=== PATIENT | female | born 1985 | race Caucasian/White ===

== ENCOUNTER → 2018-02-27 01:24 | Outpatient (CLI) | payer MEDICAID, SELFPAY ==
--- NOTE | 2018-02-27 15:12 | DI.REPORT_ITS ---
SYMPTOM/DIAGNOSIS: , Z34.90 OB ULTRASOUND 02/27/18 OB ultrasound was performed utilizing 2nd trimester protocol. biometry is consistent with gestational age of 20 weeks 4 days and an EDC of 07/13/18. The placenta is anterior with no evidence of placenta previa. There is normal quantity of amniotic fluid. Anomaly screen is within normal limits as per the attached check list. Many abnormalities cannot be diagnosed. A normal exam does not exclude a congenital anomaly. Radiology No. [id number] LMP: Exam Date: 02/27/18 [facility] wks days on EDC ([facility]) 07/13/18 Confirmed: HISTORY: SURVEY ---- PREDICTED GESTATIONAL AGE NUMBER 20 +4 weeks with a range of 19 +4 week to 21 +4 weeks. 1 Determined by_XX__1STUS___LMP___HISTORY Info. pertaining to fetus # PLACENTA PRESENTATION Grade 0-1 Cephalic_XX__ Anterior_XX__Posterior___ Breech____ Right Left Transverse(head right___ Fundal___Low-lying___Previa___ Transverse(head left___ Varying BIOMETRY AMNIOTIC FLUID BPD: 48 mm 20 +4 weeks Normal HC: 182 mm 20 +4 weeks AC: 154 mm 20 +4 weeks FL: 34 mm 20 +5 weeks AMNIOTIC FLUID INDEX >26 WK CRL: mm weeks Cisterna Magna: 2.7 mm CI: 79 RUQ: LUQ Cerebellum: 2.04 cm EFW: 365 grams 47% Percentile RLQ: LLQ Total: cms Composite AGE= 20 +4 wks EDC by US___07/13/18 BIOPHYSICAL PROFILE ANATOMY IDENTIFIED SCORE 0/2 Heart: 4-Chamber__XX_Rate:BPM__143 bpm__ LVOT:___X RVOT:__X Amniotic Fluid(>2cms)____ Stomach:_X Kidneys:__X Respirations (>30 secs) Bladder:___X Post. Fossa:___X Body Flex/Extension 3 vessel cord:_X Ventricles:__X cord insertion:_X____ Lips:__X__ Extremity Flex/Extension spinal morphology:_X Nose:X Total Score= Palate:_X NS=not seen
== END ==
PROVIDERS: PCP Family Medicine; Visit Provider Advanced Practice Midwife
DX: Z34.92 Encounter for supervision of normal pregnancy, unspecified, second trimester (principal)
CPT/HCPCS: 76805

== ENCOUNTER → 2018-03-02 15:17 | Outpatient (CLI) | payer MEDICAID, SELFPAY ==
[2018-03-02 17:19] LABS: ALT 12 U/L (12-78); AST 10 U/L (15-37); Albumin 3.4 g/dL (3.4-5.0); Alkaline Phosphatase 75 U/L (46-116); Bilirubin, Direct 0.13 mg/dL (0.00-0.20); Bilirubin, Total 0.4 mg/dL (0.2-1.0)
[2018-03-02 18:01] LABS: *AMPHETAMINES SCREEN URINE Negative (Negative); *BARBITURATES SCREEN URINE Negative (Negative); *BENZODIAZEPINES SCREEN URINE Negative (Negative); Cannabinoids THC Negative (Negative); Cocaine Screen,Urine Negative (Negative); METHADONE URINE SCREEN Negative (Negative); OPIATES URINE SCREEN Negative (Negative)
[2018-03-02 18:27] LABS: Tricyclic Antidepressants Negative (Negative)
[2018-03-09 15:36] LABS: Result Summary NEGATIVE; Specimen WB Whole Blood
== END ==
PROVIDERS: Advanced Practice Midwife; PCP Family Medicine; Visit Provider Advanced Practice Midwife
DX: B18.2 Chronic viral hepatitis C (principal); Z34.82 Encounter for supervision of other normal pregnancy, second trimester; Z13.228 Encounter for screening for other metabolic disorders
CPT/HCPCS: 36415; 80076; 80307; 81220

== ENCOUNTER 2018-04-03 13:28 | Emergency (ER) | payer MEDICAID, SELFPAY ==
[2018-04-03 13:30] VITALS: BP 127/77; PULSE 89; RESP 20; TEMP 36.4; O2SAT 99
--- NOTE | 2018-04-03 14:01 | W.ED.GENAD ---
Discharge Plan Disposition Patient Disposition: HOME Discharge Details Chief Complaint: RespSymp Clinical Impression: Bronchitis Primary Care Provider: Tavo Jean ED Provider: Yovany Atkins Home Meds and New Rx's Prescriptions: New albuterol sulfate 90 mcg/actuation HFA aerosol inhaler 2 puff IH Q4H PRN (Reason: wheezing) Qty: 8 RF: 0 Continue buprenorphine-naloxone [Suboxone] 12-3 mg film 1 film SL DAILY RF: 0 sertraline [Zoloft] 25 mg tablet 25 mg PO DAILY RF: 0 trazodone 50 mg tablet 100 mg PO HS RF: 0 [id number] [Prenate AM] 1 EACH tablet 1 ea PO DAILY 30 Days Qty: 30 RF: 6 PNV,calcium 46-tvgd-vwrrw acid [ Plus (calcium carb)] 1 EACH tablet 1 tab-cap PO DAILY 30 Days Qty: 30 RF: 11 aspirin [Aspir-Low] 81 MG tablet,delayed release (DR/EC) 81 mg PO DAILY Qty: 90 RF: 2 docusate sodium [Colace] 100 MG capsule 100 mg PO DAILY Qty: 1 RF: 0 omeprazole 20 MG capsule,delayed release(DR/EC) 20 mg PO DAILY Qty: 1 RF: 0 Discharge Instructions Instructions: Acute Bronchitis (ED) Additional Instructions: Use albuterol inhaler with spacer: 2 puffs every 4 hours as needed for wheezing and shortness. Please contact your primary care physician to arrange follow-up. Return to the ER for any worsening or new concerning symptoms. Referrals: Tavo Jean [Primary Care Provider] - Medical Decision Making [facility] Narrative Medical decision making narrative: 14:15 --32-year-old 201 at 25 weeks with history of reactive airway disease with wheeze that responded to albuterol in the past, here with 3 days of nonproductive cough and wheezing. Patient is afebrile. Hemodynamically stable. Saturating well. She does have bilateral wheeze on exam. We will treat with albuterol neb and reassess. 15:28 --patient was reassessed after 2 albuterol neb treatments and wheeze resolved. She does have now have some bilateral rhonchi. Suspect viral bronchitis. Patient was provided albuterol inhaler and spacer and she was instructed on use. She was encouraged to use this to treat for asthma. Patient was advised to follow-up with her primary care physician as scheduled later this week and I encouraged her to return immediately should she have any worsening or new concerning symptoms. HPI - General Adult General Date/Time Provider Initiated Documentation: 04/03/18 13:41. Limitations to Documentation: no limitations. Information obtained by: patient. HPI Narrative: 32-year-old female smoker, at 25 weeks, here with chief complaint of wheeze. Patient states that her wheeze started about 3 days ago and has persisted. Wheeze is constant. No modifiers. Patient has an associated dry nonproductive cough. She also has some sinus congestion. No fevers. Patient recently stayed in her father's camp and notes she may have been exposed to some environmental allergens. Patient denies official diagnosis of asthma but has had similar wheeze in the past when she has had bronchitis that has responded to albuterol inhaler. She currently does not have an inhaler. Related Data Home Medications Medication Instructions Recorded Confirmed docusate sodium [Colace] 100 mg PO DAILY #1 03/02/18 04/03/18 omeprazole 20 mg PO DAILY #1 03/02/18 04/03/18 buprenorphine 12 mg-naloxone 3 mg 1 film SL DAILY film 04/03/18 04/03/18 sublingual film sertraline 25 mg tablet 25 mg PO DAILY 04/03/18 04/03/18 trazodone 50 mg tablet 100 mg PO HS tab 04/03/18 04/03/18 Previous Rx's Medication Instructions Recorded [id number] 1 ea PO DAILY 30 Days #30 tab 12/08/17 [Prenate AM] PNV,calcium 02-zmyf-mromc acid 1 tab-cap PO DAILY 30 Days #30 12/27/17 [ Plus (calcium carb)] tab-cap aspirin [Aspir-Low] 81 mg PO DAILY #90 tab-cap 01/08/18 albuterol sulfate 2 puff IH Q4H PRN #8 gm 04/03/18 Allergies Allergy/AdvReac Type Severity Reaction Status Date / Time ibuprofen [From Advil] AdvReac Mild Hives Unverified 04/03/18 13:37 General Stated Complaint: RespSymp HERIBERTO: 3 Review of Systems Review of Systems All systems reviewed & are unremarkable except as noted in HPI and below Constitutional Denies fever(s) ENT Reports nasal congestion Cardiovascular Denies chest pain and Reports dyspnea Respiratory Reports dyspnea and Reports wheezing Allergic/Immunologic Reports wheezing PFSH Family History Other Heart disease Hyperlipidemia Mental disorder Personal history of malignant neoplasm Medical History Depression Opiate addiction Social History adopted: No foster care: No pets and animals: Yes (1 cat, 1 dog) pets and animals: cat(s) and dog(s) Smoking/Tobacco Use Status: Current every day details: alcohol intake none substance use type: does not use Surgical History Bone spur L wrist wisdom teeth extractions Exam Const General: cooperative, no acute distress, well developed, acute distress and not in distress Orientation: alert and awake Limitations: mental status not altered HENMT Head: normal to inspection and normocephalic Face and sinus: other (congestion) Mouth: moist mucous membranes Throat: posterior oropharynx normal, uvula midline and no uvular edema Eyes General: appearance normal, both eyes and all related structures Conjunctivae: conjunctivae normal EOM: EOM intact bilaterally Neck Neck: trachea midline, supple and no lymphadenopathy noted Resp Effort & Inspection: normal respiratory effort, cough, not labored and no respiratory distress Auscultation: no rales, no rhonchi and wheezes Cardio Jugular venous pressure: no JVD Rate: regular rate Rhythm: regular rhythm Heart Sounds: S1 normal, S2 normal, no gallops, no murmurs and no rubs GI Palpation: soft and nontender Skin General skin exam: no rashes or lesions noted and dry skin Other: warm Neuro General: alert, awake and oriented x3 Psych Appearance: grossly normal Affect: normal affect Course Vital Signs Temperature 36.4 C L 04/03/18 13:30 Pulse 89 04/03/18 13:30 Respiratory Rate 20 04/03/18 13:30 Blood Pressure 127/77 04/03/18 13:30 Pulse Oximetry 99 04/03/18 13:30 Temperature 36.4 C L 04/03/18 13:30 Pulse 89 04/03/18 13:30 Respiratory Rate 20 04/03/18 13:30 Blood Pressure 127/77 04/03/18 13:30 Pulse Oximetry 99 04/03/18 13:30
[2018-04-03 14:10] VITALS: RESP 4
[2018-04-03] MEDS: Albuterol 2.5 MG/3 ML INH SOLN VIAL UPD ×2 (14:10→14:27)
[2018-04-03] MEDS: Albuterol HFA 8 GM 60 PUFF INH IH (14:11)
--- NOTE | 2018-04-03 14:16 | ED.GENADUL_ITS ---
Discharge Plan Disposition Patient Disposition: HOME Discharge Details Chief Complaint: RespSymp Clinical Impression: Bronchitis Primary Care Provider: Tavo Jean ED Provider: Yovany Atkins Home Meds and New Rx's Prescriptions: New albuterol sulfate 90 mcg/actuation HFA aerosol inhaler 2 puff IH Q4H PRN (Reason: wheezing) Qty: 8 RF: 0 Continue buprenorphine-naloxone [Suboxone] 12-3 mg film 1 film SL DAILY RF: 0 sertraline [Zoloft] 25 mg tablet 25 mg PO DAILY RF: 0 trazodone 50 mg tablet 100 mg PO HS RF: 0 [id number] [Prenate AM] 1 EACH tablet 1 ea PO DAILY 30 Days Qty: 30 RF: 6 PNV,calcium 71-ejvd-wovhk acid [ Plus (calcium carb)] 1 EACH tablet 1 tab-cap PO DAILY 30 Days Qty: 30 RF: 11 aspirin [Aspir-Low] 81 MG tablet,delayed release (DR/EC) 81 mg PO DAILY Qty: 90 RF: 2 docusate sodium [Colace] 100 MG capsule 100 mg PO DAILY Qty: 1 RF: 0 omeprazole 20 MG capsule,delayed release(DR/EC) 20 mg PO DAILY Qty: 1 RF: 0 Discharge Instructions Instructions: Acute Bronchitis (ED) Additional Instructions: Use albuterol inhaler with spacer: 2 puffs every 4 hours as needed for wheezing and shortness. Please contact your primary care physician to arrange follow-up. Return to the ER for any worsening or new concerning symptoms. Referrals: Tavo Jean [Primary Care Provider] - Medical Decision Making [facility] Narrative Medical decision making narrative: 14:15 --32-year-old 201 at 25 weeks with history of reactive airway disease with wheeze that responded to albuterol in the past, here with 3 days of nonproductive cough and wheezing. Patient is afebrile. Hemodynamically stable. Saturating well. She does have bilateral wheeze on exam. We will treat with albuterol neb and reassess. 15:28 --patient was reassessed after 2 albuterol neb treatments and wheeze resolved. She does have now have some bilateral rhonchi. Suspect viral bronchitis. Patient was provided albuterol inhaler and spacer and she was instructed on use. She was encouraged to use this to treat for asthma. Patient was advised to follow-up with her primary care physician as scheduled later this week and I encouraged her to return immediately should she have any worsening or new concerning symptoms. HPI - General Adult General Date/Time Provider Initiated Documentation: 04/03/18 13:41 . Limitations to Documentation: no limitations . Information obtained by: patient . HPI Narrative: 32-year-old female smoker, at 25 weeks, here with chief complaint of wheeze. Patient states that her wheeze started about 3 days ago and has persisted. Wheeze is constant. No modifiers. Patient has an associated dry nonproductive cough. She also has some sinus congestion. No fevers. Patient recently stayed in her father's camp and notes she may have been exposed to some environmental allergens. Patient denies official diagnosis of asthma but has had similar wheeze in the past when she has had bronchitis that has responded to albuterol inhaler. She currently does not have an inhaler. Related Data Home Medications Medication Instructions Recorded Confirmed docusate sodium [Colace] 100 mg PO DAILY #1 03/02/18 04/03/18 omeprazole 20 mg PO DAILY #1 03/02/18 04/03/18 buprenorphine 12 mg-naloxone 3 mg 1 film SL DAILY film 04/03/18 04/03/18 sublingual film sertraline 25 mg tablet 25 mg PO DAILY 04/03/18 04/03/18 trazodone 50 mg tablet 100 mg PO HS tab 04/03/18 04/03/18 Previous Rx's Medication Instructions Recorded [id number] 1 ea PO DAILY 30 Days #30 tab 12/08/17 [Prenate AM] PNV,calcium 58-mvck-lundm acid 1 tab-cap PO DAILY 30 Days #30 12/27/17 [ Plus (calcium carb)] tab-cap aspirin [Aspir-Low] 81 mg PO DAILY #90 tab-cap 01/08/18 albuterol sulfate 2 puff IH Q4H PRN #8 gm 04/03/18 Allergies Allergy/AdvReac Type Severity Reaction Status Date / Time ibuprofen [From Advil] AdvReac Mild Hives Unverified 04/03/18 13:37 General Stated Complaint: RespSymp HERIBERTO: 3 Review of Systems Review of Systems All systems reviewed & are unremarkable except as noted in HPI and below Constitutional Denies fever(s) ENT Reports nasal congestion Cardiovascular Denies chest pain and Reports dyspnea Respiratory Reports dyspnea and Reports wheezing Allergic/Immunologic Reports wheezing PFSH Family History Other Heart disease Hyperlipidemia Mental disorder Personal history of malignant neoplasm Medical History Depression Opiate addiction Social History adopted: No foster care: No pets and animals: Yes (1 cat, 1 dog) pets and animals: cat(s) and dog(s) Smoking/Tobacco Use Status: Current every day details: alcohol intake none substance use type: does not use Surgical History Bone spur L wrist wisdom teeth extractions Exam Const General: cooperative, no acute distress, well developed, acute distress and not in distress Orientation: alert and awake Limitations: mental status not altered HENMT Head: normal to inspection and normocephalic Face and sinus: other (congestion) Mouth: moist mucous membranes Throat: posterior oropharynx normal, uvula midline and no uvular edema Eyes General: appearance normal, both eyes and all related structures Conjunctivae: conjunctivae normal EOM: EOM intact bilaterally Neck Neck: trachea midline, supple and no lymphadenopathy noted Resp Effort & Inspection: normal respiratory effort, cough, not labored and no respiratory distress Auscultation: no rales, no rhonchi and wheezes Cardio Jugular venous pressure: no JVD Rate: regular rate Rhythm: regular rhythm Heart Sounds: S1 normal, S2 normal, no gallops, no murmurs and no rubs GI Palpation: soft and nontender Skin General skin exam: no rashes or lesions noted and dry skin Other: warm Neuro General: alert, awake and oriented x3 Psych Appearance: grossly normal Affect: normal affect Course Vital Signs Temperature 36.4 C L 04/03/18 13:30 Pulse 89 04/03/18 13:30 Respiratory Rate 20 04/03/18 13:30 Blood Pressure 127/77 04/03/18 13:30 Pulse Oximetry 99 04/03/18 13:30 Temperature 36.4 C L 04/03/18 13:30 Pulse 89 04/03/18 13:30 Respiratory Rate 20 04/03/18 13:30 Blood Pressure 127/77 04/03/18 13:30 Pulse Oximetry 99 04/03/18 13:30
[2018-04-03 14:27] VITALS: RESP 4
[2018-04-03] MEDS: Inhaler, Assist Device 1 EACH MC (14:28)
[2018-04-03 14:40] VITALS: RESP 4
[2018-04-03 14:57] VITALS: RESP 1
[2018-04-03 15:45] VITALS: BP 141/65; PULSE 89; RESP 20; TEMP 36.4; O2SAT 99
== END 2018-04-03 15:47 | disposition home or self-care (01) ==
PROVIDERS: Emergency Provider Student in an Organized Health Care Education/Training Program; PCP Family Medicine
DX: J20.9 Acute bronchitis, unspecified (principal); J45.909 Unspecified asthma, uncomplicated; Z33.1 Pregnant state, incidental; Z3A.25 25 weeks gestation of pregnancy; O99.332 Smoking (tobacco) complicating pregnancy, second trimester
CPT/HCPCS: 94640; 99284; J7613

== ENCOUNTER 2018-04-20 10:16 | Outpatient (CLI) | payer MEDICAID, SELFPAY ==
[2018-04-20 10:39] LABS: HCT 32.3 % (36.0-46.0); HGB 10.8 g/dL (12.0-15.5); Mean Corp. HGB Concentration 33.4 g/dL (32.0-36.0); Mean Corpuscular Hemoglobin 31.7 pg (27.0-33.0); Mean Corpuscular Volume 94.7 fL (80-95); Mean Platelet Volume 9.2 fL (8.0-11.0); Platelet Count 153 x1000/uL (130-400); RBC 3.41 m/cumm (4.00-5.20); RBC Distribution Width 13.3 % (11.7-14.6); White Blood Cell Count 10.78 k/cumm (4.4-10.8)
[2018-04-20 10:47] LABS: Glucose,1 Hr (Glucola) 91 mg/dL (80-140)
== END 2018-04-20 10:36 ==
PROVIDERS: PCP Family Medicine; Visit Provider Advanced Practice Midwife
DX: Z34.92 Encounter for supervision of normal pregnancy, unspecified, second trimester (principal)
CPT/HCPCS: 36415; 82950; 85027

== ENCOUNTER 2018-06-14 01:14 | Outpatient (CLI) | payer MEDICAID, SELFPAY ==
--- NOTE | 2018-06-14 12:49 | DI.US_ITS ---
SYMPTOMS/DIAGNOSIS: SIZE > DATES, O26.843 OB ULTRASOUND: OB ultrasound was performed utilizing third trimester protocol. The placenta is anterior with no evidence of placenta previa. There is visually a normal quantity of amniotic fluid and the SHOBHA is 16. biometry is consistent with a gestational age of 35 weeks 6 days and an EDC of 07/13/18. Estimated weight is 2793 grams which is at the 51st percentile for predicted gestational age. cardiac activity is observed at a rate of 141 bpm. The fetus is in cephalic presentation. Many abnormalities cannot be diagnosed. A normal exam does not exclude a congenital anomaly. Radiology No. [id number] LMP: Exam Date : 06/14/18 [facility] wks days on EDC ([facility]) Confirmed: HISTORY: S > D ---- PREDICTED GESTATIONAL AGE NUMBER 35+6 weeks with a range of 34+6 weeks to 36+6 weeks. 1 Determined by___1STUS___LMP___HISTORY Info. pertaining to fetus # PLACENTA PRESENTATION Grade II Cephalic X Anterior X Posterior___ Breech____ Right Left Transverse(head right___ Fundal___Low-lying___Previa___ Transverse(head left___ Varying BIOMETRY AMNIOTIC FLUID BPD: 87 mm 35+1 weeks Normal HC: 322 mm 36+3 weeks AC: 323 mm 36+2 weeks FL: 69 mm 35+2 weeks AMNIOTIC FLUID INDEX >26 WK CRL: mm weeks Cisterna Magna: mm CI: 77 RUQ: 5.8 LUQ: 3.5 Cerebellum: cm EFW: 2793 grams Percentile 51% RLQ: 4.7 LLQ: 2.4 6# 3 oz Total: 16.4 cms Composite AGE= 35+6 wks EDC by US 07/13/18 BIOPHYSICAL PROFILE ANATOMY IDENTIFIED SCORE 0/2 Heart: 4-Chamber___Rate: 141 BPM LVOT: RVOT: Amniotic Fluid(>2cms)____ Stomach: Kidneys: Respirations (>30 secs) Bladder: Post. Fossa: Body Flex/Extension 3 vessel cord: Ventricles: cord insertion: Lips:____ Extremity Flex/Extension spinal morphology: Nose: Total Score= Palate: NS=not seen
== END 2018-06-14 01:34 ==
PROVIDERS: PCP Family Medicine; Visit Provider Advanced Practice Midwife
DX: O26.843 Uterine size-date discrepancy, third trimester (principal); Z36.2 Encounter for other antenatal screening follow-up; Z36.85 Encounter for antenatal screening for Streptococcus B
CPT/HCPCS: 76816; 87081

== ENCOUNTER 2018-06-21 09:30 | Outpatient (CLI) | payer MEDICAID, SELFPAY ==
[2018-06-21 11:04] LABS: HCT 35.3 % (36.0-46.0); HGB 11.6 g/dL (12.0-15.5); Mean Corp. HGB Concentration 32.9 g/dL (32.0-36.0); Mean Corpuscular Volume 94.4 fL (80-95); Mean Platelet Volume 10.7 fL (8.0-11.0); Platelet Count 192 x1000/uL (130-400); RBC 3.74 m/cumm (4.00-5.20); RBC Distribution Width 13.5 % (11.7-14.6); White Blood Cell Count 12.12 k/cumm (4.4-10.8)
[2018-06-21 11:28] LABS: ALT 13 U/L (12-78); AST 11 U/L (15-37); Albumin 2.7 g/dL (3.4-5.0); Alkaline Phosphatase 103 U/L (46-116); Bilirubin, Direct 0.06 mg/dL (0.00-0.20); Bilirubin, Total 0.2 mg/dL (0.2-1.0); CREATININE 0.62 mg/dL (0.55-1.02); Total Protein 6.3 g/dL (6.4-8.2); Uric Acid 4.9 mg/dL (2.6-6.0)
[2018-06-21 11:50] LABS: PROTEIN 18.8 mg/dL
[2018-06-21 11:52] LABS: COMMENT (LAB VIEW ONLY) 128.17 mg/dL; Prot/Crea Ur Ratio 0.14
[2018-06-22 10:12] LABS: HIV-1/2 Ag & Ab Screen Negative (NEGAT)
[2018-06-22 14:25] LABS: HCV RNA Detection Quantitative Undetected IU/mL (UNDECT)
== END 2018-06-21 09:50 ==
PROVIDERS: PCP Family Medicine; Visit Provider Advanced Practice Midwife
DX: O16.3 Unspecified maternal hypertension, third trimester (principal); B18.2 Chronic viral hepatitis C; Z11.4 Encounter for screening for human immunodeficiency virus [HIV]
CPT/HCPCS: 36415; 80076; 85027; 87389; 82565; 84156; 84550; 87522

== ENCOUNTER 2018-06-21 10:31 | Outpatient (CLI) | payer MEDICAID, SELFPAY | END 2018-06-21 10:51 | PROVIDERS: PCP Family Medicine; Visit Provider Advanced Practice Midwife | DX: O13.3 Gestational [pregnancy-induced] hypertension without significant proteinuria, third trimester (principal); Z3A.36 36 weeks gestation of pregnancy | CPT/HCPCS: 59025 ==

== ENCOUNTER 2018-07-06 11:39 | Outpatient (CLI) | payer MEDICAID, SELFPAY ==
[2018-07-06 12:27] LABS: HCT 35.6 % (36.0-46.0); Mean Corp. HGB Concentration 33.7 g/dL (32.0-36.0); Mean Corpuscular Hemoglobin 31.3 pg (27.0-33.0); Mean Corpuscular Volume 92.7 fL (80-95); Mean Platelet Volume 10.7 fL (8.0-11.0); Platelet Count 186 x1000/uL (130-400); RBC 3.84 m/cumm (4.00-5.20); RBC Distribution Width 13.5 % (11.7-14.6); White Blood Cell Count 12.16 k/cumm (4.4-10.8)
[2018-07-06 13:08] LABS: ALT 13 U/L (12-78); AST 15 U/L (15-37); Albumin 2.7 g/dL (3.4-5.0); Alkaline Phosphatase 130 U/L (46-116); Bilirubin, Direct 0.07 mg/dL (0.00-0.20); Bilirubin, Total 0.3 mg/dL (0.2-1.0); CREATININE 0.65 mg/dL (0.55-1.02); Total Protein 6.1 g/dL (6.4-8.2); Uric Acid 5.8 mg/dL (2.6-6.0)
[2018-07-06 13:15] LABS: PROTEIN 30.6 mg/dL
== END 2018-07-06 11:59 ==
PROVIDERS: PCP Family Medicine; Visit Provider Advanced Practice Midwife
DX: Z34.93 Encounter for supervision of normal pregnancy, unspecified, third trimester (principal)
CPT/HCPCS: 36415; 80076; 85027; 82565; 84156; 84550

== ENCOUNTER 2018-07-15 19:15 | Inpatient (IN) | payer MEDICAID, SELFPAY ==
[2018-07-15] MEDS: Docusate Sodium 100 MG CAP PO (21:28)
[2018-07-15] MEDS: traZODone 50 MG TAB 150 MG PO (21:28)
[2018-07-15] MEDS: Sertraline 50 MG TAB 100 MG PO (21:28)
[2018-07-15] MEDS: Nicotine 14 MG/24 HR PATCH TD (21:59)
[2018-07-16 07:28] LABS: HGB 13.3 g/dL (12.0-15.5); Mean Corpuscular Volume 91.3 fL (80-95); Mean Platelet Volume 11.5 fL (8.0-11.0); Platelet Count 176 x1000/uL (130-400); RBC 4.16 m/cumm (4.00-5.20); RBC Distribution Width 13.3 % (11.7-14.6); White Blood Cell Count 20.61 k/cumm (4.4-10.8)
[2018-07-16] MEDS: Acetaminophen 325 MG TAB 650 MG PO ×2 (08:36→17:29)
[2018-07-16] MEDS: Omeprazole 20 MG CAPCR 40 MG PO (08:36)
[2018-07-16] MEDS: Nicotine 14 MG/24 HR PATCH TD ×2 (08:36→19:32)
[2018-07-16] MEDS: Docusate Sodium 100 MG CAP PO ×2 (08:37→20:35)
[2018-07-16] MEDS: Buprenorphine/Naloxone 12 mg/3 mg FILM 1 EACH SL (08:37)
[2018-07-16] MEDS: Hamamelis Leaf/Glycerin 100 EACH BOX PR (17:31)
[2018-07-16] MEDS: Sertraline 50 MG TAB 100 MG PO (20:34)
[2018-07-16] MEDS: traZODone 50 MG TAB 150 MG PO (20:34)
[2018-07-17] MEDS: Acetaminophen 325 MG TAB 650 MG PO ×5 (03:34→22:20)
[2018-07-17 07:47] LABS: HCT 34.3 % (36.0-46.0); HGB 11.5 g/dL (12.0-15.5); Mean Corp. HGB Concentration 33.5 g/dL (32.0-36.0); Mean Corpuscular Hemoglobin 31.8 pg (27.0-33.0); Mean Corpuscular Volume 94.8 fL (80-95); Mean Platelet Volume 10.6 fL (8.0-11.0); Platelet Count 175 x1000/uL (130-400); RBC 3.62 m/cumm (4.00-5.20); RBC Distribution Width 13.7 % (11.7-14.6); White Blood Cell Count 14.66 k/cumm (4.4-10.8)
[2018-07-17] MEDS: Omeprazole 20 MG CAPCR 40 MG PO (08:00)
[2018-07-17] MEDS: Buprenorphine/Naloxone 12 mg/3 mg FILM 1 EACH SL (08:01)
[2018-07-17] MEDS: Docusate Sodium 100 MG CAP PO ×2 (08:01→22:20)
[2018-07-17] MEDS: Nicotine 14 MG/24 HR PATCH TD (13:07)
[2018-07-17] MEDS: traZODone 50 MG TAB 150 MG PO (22:19)
[2018-07-17] MEDS: Sertraline 50 MG TAB 100 MG PO (22:20)
[2018-07-18] MEDS: Acetaminophen 325 MG TAB 650 MG PO ×2 (07:40→19:14)
[2018-07-18] MEDS: Buprenorphine/Naloxone 12 mg/3 mg FILM 1 EACH SL (07:48)
[2018-07-18] MEDS: Omeprazole 20 MG CAPCR 40 MG PO (07:48)
[2018-07-18] MEDS: Docusate Sodium 100 MG CAP PO ×2 (07:48→19:15)
[2018-07-18] MEDS: Nicotine 14 MG/24 HR PATCH TD (12:30)
[2018-07-18] MEDS: Hamamelis Leaf/Glycerin 100 EACH BOX PR (19:15)
[2018-07-19 15:22] LABS: Chlamydia Result Negative; GC Result Negative
== END 2018-07-18 19:55 | disposition other institution (70) | DRG 806 ==
LOC: OBS 20:30
PROVIDERS: Admitting Provider Advanced Practice Midwife; PCP Family Medicine; Visit Provider Advanced Practice Midwife
DX: O48.0 Post-term pregnancy (principal); O99.324 Drug use complicating childbirth; Z37.0 Single live birth; F11.20 Opioid dependence, uncomplicated; O98.42 Viral hepatitis complicating childbirth; Z3A.40 40 weeks gestation of pregnancy; O76 Abnormality in fetal heart rate and rhythm complicating labor and delivery; O77.0 Labor and delivery complicated by meconium in amniotic fluid; O92.79 Other disorders of lactation; O99.334 Smoking (tobacco) complicating childbirth; O99.344 Other mental disorders complicating childbirth; O99.89 Other specified diseases and conditions complicating pregnancy, childbirth and the puerperium; B19.20 Unspecified viral hepatitis C without hepatic coma; F17.210 Nicotine dependence, cigarettes, uncomplicated; F32.9 Major depressive disorder, single episode, unspecified
CPT/HCPCS: 36415; 85027; 86850; 86900; 86901; 87491; 87591; 59025; G0378; J3490

== ENCOUNTER 2018-08-31 09:20 | Outpatient (CLI) | payer MEDICAID, SELFPAY ==
[2018-08-31 10:02] LABS: Abs Immature Grans 0.02 k/cumm (0.0-0.09); Absolute Basophil Count 0.04 k/cumm (0.0-0.2); Absolute Eosinophil Count 0.54 k/cumm (0.0-0.7); Absolute Lymphocyte Count 2.29 k/cumm (1.2-3.4); Absolute Monocyte Count 0.46 k/cumm (0.11-0.7); Absolute Neutrophil Count 4.87 k/cumm (1.2-6.7); Basophils % 0.5; Eosinophils % 6.6; HCT 38.6 % (36.0-46.0); HGB 12.6 g/dL (12.0-15.5); Immature Grans % 0.2; Lymphocytes % 27.9; Mean Corp. HGB Concentration 32.6 g/dL (32.0-36.0); Mean Corpuscular Volume 95.1 fL (80-95); Mean Platelet Volume 10.6 fL (8.0-11.0); Monocytes % 5.6; Neutrophils % 59.2; Platelet Count 196 x1000/uL (130-400); RBC 4.06 m/cumm (4.00-5.20); RBC Distribution Width 12.4 % (11.7-14.6); White Blood Cell Count 8.22 k/cumm (4.4-10.8)
[2018-08-31 10:19] LABS: INR 0.9 (0.9-1.1); PTT Activated 20.1 sec (21.0-31.4); Prothrombin Time 9.3 sec (9.3-11.0)
[2018-08-31 10:59] LABS: ALT 12 U/L (12-78); AST 11 U/L (15-37); Albumin 3.6 g/dL (3.4-5.0); Alkaline Phosphatase 102 U/L (46-116); Anion Gap 10.4 mmol/L (3-11); BUN 16 mg/dL (7-18); Bilirubin, Direct 0.05 mg/dL (0.00-0.20); Bilirubin, Total 0.1 mg/dL (0.2-1.0); CO2 26.6 mmol/L (21.0-32.0); CREATININE 0.75 mg/dL (0.55-1.02); Chloride 104 mmol/L (98-107); Glucose 94 mg/dL (70-100); Potassium 4.4 mmol/L (3.5-5.1); Sodium 141 mmol/L (136-145)
[2018-08-31 14:26] LABS: Acetaminophen < 2 ug/mL (10-30)
== END 2018-08-31 09:40 ==
PROVIDERS: PCP Family Medicine; Visit Provider Psychiatry & Neurology Psychiatry
DX: T39.1X1S Poisoning by 4-Aminophenol derivatives, accidental (unintentional), sequela (principal); R69 Illness, unspecified
CPT/HCPCS: 36415; 80048; 80076; 80329; 85025; 85610; 85730

== ENCOUNTER 2018-12-27 09:44 | Outpatient (CLI) | payer MEDICAID, SELFPAY ==
[2018-12-27 11:59] LABS: HCT 40.2 % (36.0-46.0); HGB 13.2 g/dL (12.0-15.5); Mean Corp. HGB Concentration 32.8 g/dL (32.0-36.0); Mean Corpuscular Hemoglobin 30.3 pg (27.0-33.0); Mean Corpuscular Volume 92.2 fL (80-95); Mean Platelet Volume 10.3 fL (8.0-11.0); Platelet Count 184 x1000/uL (130-400); RBC 4.36 m/cumm (4.00-5.20); RBC Distribution Width 14.1 % (11.7-14.6); White Blood Cell Count 6.82 k/cumm (4.4-10.8)
[2018-12-27 12:06] LABS: Mono Screening Negative (Negative)
[2018-12-27 13:18] LABS: ALT 31 U/L (12-78); AST 23 U/L (15-37); Albumin 3.8 g/dL (3.4-5.0); Alkaline Phosphatase 137 U/L (46-116); Anion Gap 10.1 mmol/L (3-11); BUN 17 mg/dL (7-18); Bilirubin, Total 0.2 mg/dL (0.2-1.0); CO2 25.9 mmol/L (21.0-32.0); Calcium 9.1 mg/dL (8.5-10.1); Chloride 104 mmol/L (98-107); Glucose 91 mg/dL (70-100); Potassium 4.4 mmol/L (3.5-5.1); Sodium 140 mmol/L (136-145); Total Protein 7.5 g/dL (6.4-8.2)
[2018-12-28 06:57] LABS: Abs Immature Grans 0.02 k/cumm (0.0-0.09); Absolute Basophil Count 0.04 k/cumm (0.0-0.2); Absolute Eosinophil Count 0.36 k/cumm (0.0-0.7); Absolute Lymphocyte Count 2.32 k/cumm (1.2-3.4); Absolute Monocyte Count 0.39 k/cumm (0.11-0.7); Absolute Neutrophil Count 3.86 k/cumm (1.2-6.7); Basophils % 0.6; Eosinophils % 5.2; Immature Grans % 0.3; Lymphocytes % 33.2; Monocytes % 5.6; Neutrophils % 55.1
[2018-12-28 10:11] LABS: HIV-1/2 Ag & Ab Screen Negative (NEGAT)
== END 2018-12-27 10:04 ==
PROVIDERS: PCP Family Medicine; Visit Provider Nurse Practitioner Women's Health
DX: R59.1 Generalized enlarged lymph nodes (principal); Z11.4 Encounter for screening for human immunodeficiency virus [HIV]
CPT/HCPCS: 36415; 80053; 85027; 87389; 85007; 86308

== ENCOUNTER 2019-07-18 02:10 | Outpatient (CLI) | payer MEDICAID, SELFPAY ==
--- NOTE | 2019-07-18 13:42 | DI.MAMMO_ITS ---
EXAM: MG MAMMO DIAGNOSTIC BILATERAL AND LT BREAST AND AXILLA ULTRASOUND CLINICAL HISTORY: fibroglandular breast, L outer lower quad lump, N60.19, N63.20 TECHNIQUE: Mammograms were interpreted according to the usual protocol including computer analysis w [facility] CAD system, tomosynthesis and C-view imaging. FINDINGS: Mammogram is interpreted in conjunction with ultrasound of the left breast and left axillary region. Today's examination is a baseline examination. No dominant mass or clumped microcalcification is se en. Patient reportedly has questionable area of palpable abnormality of the left breast and ultrasound ex amination of the breast shows no evidence of a mass or cyst. Question palpable area of abnormality in the left axilla was evaluated, mildly enlarged lymph nodes w ere noted with unremarkable hilar architecture measuring up to about 2.8 cm in greatest length. No o ther abnormality is seen IMPRESSION: No breast mass identified, unremarkable mammogram. Nonspecific mild left axillary adenopathy as described above. BI-RADS Cat 1 - Negative. Breast Density - Category B - Scattered areas of fibroglandular density.
--- NOTE | 2019-07-18 14:14 | DI.US_ITS ---
EXAM: MG MAMMO DIAGNOSTIC BILATERAL AND LT BREAST AND AXILLA ULTRASOUND CLINICAL HISTORY: fibroglandular breast, L outer lower quad lump, N60.19, N63.20 TECHNIQUE: Mammograms were interpreted according to the usual protocol including computer analysis w the [facility] CAD system, tomosynthesis and C-view imaging. FINDINGS: Mammogram is interpreted in conjunction with ultrasound of the left breast and left axillary region. Today's examination is a baseline examination. No dominant mass or clumped microcalcification is se en. Patient reportedly has questionable area of palpable abnormality of the left breast and ultrasound ex amination of the breast shows no evidence of a mass or cyst. Question palpable area of abnormality in the left axilla was evaluated, mildly enlarged lymph nodes w ere noted with unremarkable hilar architecture measuring up to about 2.8 cm in greatest length. No o ther abnormality is seen IMPRESSION: No breast mass identified, unremarkable mammogram. Nonspecific mild left axillary adenopathy as described above. BI-RADS Cat 1 - Negative. Breast Density - Category B - Scattered areas of fibroglandular density.
--- NOTE | 2019-07-18 14:23 | DI.US_ITS ---
EXAM: MG MAMMO DIAGNOSTIC BILATERAL AND LT BREAST AND AXILLA ULTRASOUND CLINICAL HISTORY: fibroglandular breast, L outer lower quad lump, N60.19, N63.20 TECHNIQUE: Mammograms were interpreted according to the usual protocol including computer analysis w [facility] CAD system, tomosynthesis and C-view imaging. FINDINGS: Mammogram is interpreted in conjunction with ultrasound of the left breast and left axillary region. Today's examination is a baseline examination. No dominant mass or clumped microcalcification is se en. Patient reportedly has questionable area of palpable abnormality of the left breast and ultrasound ex amination of the breast shows no evidence of a mass or cyst. Question palpable area of abnormality in the left axilla was evaluated, mildly enlarged lymph nodes w ere noted with unremarkable hilar architecture measuring up to about 2.8 cm in greatest length. No o ther abnormality is seen IMPRESSION: No breast mass identified, unremarkable mammogram. Nonspecific mild left axillary adenopathy as described above. BI-RADS Cat 1 - Negative. Breast Density - Category B - Scattered areas of fibroglandular density.
== END 2019-07-18 02:30 ==
PROVIDERS: PCP Family Medicine; Visit Provider Nurse Practitioner Women's Health
DX: N60.11 Diffuse cystic mastopathy of right breast (principal); N60.12 Diffuse cystic mastopathy of left breast; N63.23 Unspecified lump in the left breast, lower outer quadrant; R59.0 Localized enlarged lymph nodes
CPT/HCPCS: 76642; 77062; 77066; G0279

== ENCOUNTER 2021-04-14 15:45 | Emergency (ER) | payer MEDICAID, SELFPAY ==
[2021-04-14 15:49] VITALS: BP 129/76; PULSE 88; RESP 14; TEMP 36.4; O2SAT 99
--- NOTE | 2021-04-14 16:15 | DI.RAD_ITS ---
Exam(s) XR FINGER RT RING EXAM: XR FINGER RT RING CLINICAL HISTORY: finger injury. TECHNIQUE: 2D digital imaging was performed. COMPARISON: No exams were available for comparison FINDINGS: No evidence of fracture or dislocation. No degenerative changes. No radiopaque foreign body. No os seous lesions nor erosions. IMPRESSION: DATA REPOSITORY: RADIATION DOSE DELIVERED:
--- NOTE | 2021-04-14 16:15 | DI.CT_ITS ---
Exam(s) CT HEAD FACIAL WO EXAM: CT HEAD FACIAL WO CLINICAL HISTORY: trauma. TECHNIQUE: Imaging Protocol: Axial computed tomography images with coronal and sagittal reformatted images were created and reviewed COMPARISON: No exams were available for comparison FINDINGS: CT Head: Ventricles and Extra axial spaces: Normal in size and morphology for the patient's age. Hemorrhage: None. Cerebral parenchyma: Normal. Midline shift: None. Brainstem/Cerebellum: Normal. Calvarium: Normal. Visualized Paranasal sinuses/Mastoids: Clear. Soft Tissues: Unremarkable. CT Face: Facial Bones: No definite fracture is noted in facial bones. Sinuses and Mastoids: Unremarkable. Globes, extraocular muscles, optic nerves and retrobulbar fat: Normal. Upper aerodigestive tract: Normal. Mandible and bilateral temporomandibular joints: Normal. Soft tissues: There is air in soft tissue swelling overlying the left maxilla. No radiopaque foreign bodies are identified. IMPRESSION: 1. No acute intracranial process. 2. No acute facial fracture. 3. Soft tissue emphysema and swelling overlying the left maxilla. RADIATION DOSE DELIVERED: 1,946.31mGy.cm Total DLP DATA REPOSITORY: All CT scans at this facility are submitted to the National Radiology Data Registry (NRDR) Dose Index Registry (DIR) with the [employer] ([employer]). RADIATION OPTIMIZATION: All CT scans at this facility use at least one of these dose optimization te chniques: automated exposure control; mA and/or kV adjustment per patient size (includes targeted exa ms where dose is matched to clinical indication); or iterative reconstruction.
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
[2021-04-14] MEDS: Acetaminophen 325 MG TAB 650 MG PO (16:33)
[2021-04-14 16:39] LABS: Source Nasal/Nares
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
[2021-04-14 18:25] VITALS: BP 126/85; PULSE 74; RESP 18; O2SAT 99
[2021-04-14 20:24] LABS: COVID-19 PCR Negative (Negative)
--- NOTE | 2021-04-16 08:48 | NUR.NOTE ---
Nursing Note: called pt on cell phone regarding negative COVID test. Pt did not answer, mailbox full and unable to leave message. Home phone number states not accepting calls at this time.
--- NOTE | 2021-04-17 08:50 | NUR.NOTE ---
spoken to her her mother -told that covid test was negative. mother will relay results to pt.Nursing Note:
== END 2021-04-14 18:24 | disposition home or self-care (01) ==
PROVIDERS: Emergency Provider Student in an Organized Health Care Education/Training Program; PCP Family Medicine
DX: S02.2XXA Fracture of nasal bones, initial encounter for closed fracture (principal); S00.83XA Contusion of other part of head, initial encounter; S69.81XA Other specified injuries of right wrist, hand and finger(s), initial encounter; Y04.8XXA Assault by other bodily force, initial encounter; R05 Cough; F14.10 Cocaine abuse, uncomplicated
CPT/HCPCS: 87635; 99284; 70450; 70486; 73140; 99283

== ENCOUNTER 2022-11-08 01:20 | Outpatient (CLI) | payer MEDICAID, SELFPAY ==
--- NOTE | 2022-11-08 | DI.RAD_ITS ---
Exam(s) XR SACRUM COCCYX XR LUMBAR SPINE COMPLETE EXAM: XR LUMBAR SPINE COMPLETE an sacrum/coccyx CLINICAL HISTORY: CHRONIC BACK PAIN, M54.9, G89.29, CHRONIC LUMBAR BACK PAIN. TECHNIQUE: 2D digital imaging was performed of the lumbar spine. Nine images were obtained. AP, la teral, right oblique, left oblique and L5-S1 spot views were obtained. COMPARISON: There are no priors for comparison. FINDINGS: BONES: No fracture or destructive lesion. Vertebral bodies are unremarkable. No facet hypertrophy alfa ntified. The sacrum and coccyx are unremarkable. DISKS: Intervertebral disc spaces are maintained. ALIGNMENT: Lumbar spinal alignment is within normal limits. No spondylolysis or spondylolisthesis. SOFT TISSUE: Normal. IMPRESSION: Unremarkable radiographs of the lumbar spine, sacrum and coccyx. DATA REPOSITORY: RADIATION DOSE DELIVERED:
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
--- NOTE | 2022-11-08 | DI.RAD_ITS ---
Exam(s) XR HAND RT COMPLETE XR WRIST RT COMPLETE EXAM: XR HAND RT COMPLETE and right wrist complete CLINICAL HISTORY: PAIN IN BOTH HANDS, M79.641, M79.642. TECHNIQUE: 2D digital imaging was performed of the right hand. Six images were obtained. AP, latera l and oblique views were obtained. COMPARISON: CR,XR XR FINGER RT RING from 04/14/2021 FINDINGS: BONES: No acute fracture is present. No bony destructive lesion is seen. The bones are normally sock lining examiner alized. JOINTS: No dislocation present. The joint spaces are well maintained. SOFT TISSUE: Normal. No soft tissue calcifications are appreciated. IMPRESSION: Unremarkable right hand and wrist. DATA REPOSITORY: RADIATION DOSE DELIVERED:
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
== END 2022-11-08 01:40 ==
LOC: DI 01:20
PROVIDERS: PCP Family Medicine; Visit Provider Family Medicine
DX: M79.641 Pain in right hand (principal); M79.642 Pain in left hand; M54.9 Dorsalgia, unspecified; G89.29 Other chronic pain
CPT/HCPCS: 72110; 72220; 73110; 73130

== ENCOUNTER 2022-11-08 13:01 | Outpatient (CLI) | payer MEDICAID, SELFPAY ==
[2022-11-08 12:40] LABS: Abs Immature Grans 0.02 10^3/uL (0.0-0.06); Absolute Basophil Count 0.04 10^3/uL (0.0-0.2); Absolute Eosinophil Count 0.13 10^3/uL (0.0-0.7); Absolute Lymphocyte Count 2.36 10^3/uL (1.2-3.4); Absolute Monocyte Count 0.35 10^3/uL (0.1-0.8); Basophils % 0.4; Eosinophils % 1.2; HCT 39.3 % (36.0-46.0); HGB 12.9 g/dL (11.2-15.7); Immature Grans % 0.2; Lymphocytes % 22.5; MCH 27.7 pg (27.0-33.0); MCHC 32.8 % (32.0-36.0); MCV 85 fL (80-95); MPV 9.8 fL (8.0-11.0); Monocytes % 3.3; Neutrophils % 72.4; Platelet Count 158 10^3/uL (130-400); RBC 4.65 10^6/uL (3.93-5.22); RDW 12.9 % (11.7-14.6); RDW-SD 39.2 fL
[2022-11-08 13:56] LABS: ALT 21 U/L (14-59); AST 18 U/L (15-37); Albumin 3.6 g/dL (3.4-5.0); Alkaline Phosphatase 155 U/L (46-116); Anion Gap 3.9 mmol/L (3-11); BUN 14 mg/dL (7-18); Bilirubin, Total 0.3 mg/dL (0.2-1.0); CO2 33.1 mmol/L (21.0-32.0); CREATININE 0.9 mg/dL (0.55-1.02); Calcium 9.3 mg/dL (8.5-10.1); Chloride 101 mmol/L (98-107); Estimated GFR 83.92 (mL/min/1.73m2); Glucose 109 mg/dL (74-106); Potassium 4.2 mmol/L (3.5-5.1); Sodium 138 mmol/L (136-145); TSH (W/Ref FT4) 1.75 uIU/mL (0.36-3.74); Vitamin B12 473 pg/mL (193-986)
== END 2022-11-08 13:02 | disposition home or self-care (01) ==
LOC: LBO 13:02
PROVIDERS: PCP Family Medicine; Visit Provider Family Medicine
DX: R76.8 Other specified abnormal immunological findings in serum (principal); R60.9 Edema, unspecified
CPT/HCPCS: 36415; 80053; 82607; 82746; 84443; 85025

== ENCOUNTER 2022-11-15 04:49 | Outpatient (CLI) | payer MEDICAID, SELFPAY ==
[2022-11-15 10:15] LABS: Calculated LDL 182 mg/dL (<100); Cholesterol 273 mg/dL (<200); HDL Cholesterol 56 mg/dL (40-60); Triglyceride 178 mg/dL (<150)
== END 2022-11-15 04:50 | disposition home or self-care (01) ==
PROVIDERS: PCP Family Medicine; Visit Provider Family Medicine
DX: R60.9 Edema, unspecified (principal)
CPT/HCPCS: 36415; 80061

== ENCOUNTER 2025-03-12 01:18 | Outpatient (CLI) | payer MEDICAID, SELFPAY ==
--- NOTE | 2025-03-12 11:30 | DI.US_ITS ---
Exam(s) US ABDOMEN LIMITED EXAM: US ABDOMEN LIMITED CLINICAL HISTORY: HEP C ANTIBODY DETECTED,R76.8,ABNL FINDINGS IN SERUM TECHNIQUE: Ultrasound abdomen performed using standard protocol. COMPARISON: No exams were available for comparison FINDINGS: PANCREAS: Normal where visualized. LIVER: Normal. Hepatopetal flow in the Portal Vein. The liver measures in 19.1 cm length. No evidence of a hepatic mass. GALLBLADDER: No evidence of cholelithiasis. No evidence of wall thickening. No pericholecystic fluid identified. BILIARY SYSTEM: Common bile duct measures < 7 mm. No intrahepatic biliary ductal dilation. WILLS'S SIGN: Negative. RIGHT KIDNEY: Kidney is normal in size. No evidence of renal calculi. No evidence of hydronephrosis. No renal mass or cyst identified. ASCITES: None seen. IMPRESSION: Mildly enlarged liver. Otherwise, unremarkable right upper quadrant ultrasound. DATA REPOSITORY:
== END 2025-03-12 01:38 ==
LOC: DI 01:18
PROVIDERS: PCP Nurse Practitioner Family; Visit Provider Nurse Practitioner Family
DX: R93.2 Abnormal findings on diagnostic imaging of liver and biliary tract (principal)
CPT/HCPCS: 76705